=== PATIENT | male | born 1995 | race African-American/Black ===

== ENCOUNTER 2024-08-08 03:43 | Emergency (ER) | payer MEDICAID ==
[~2024-08-08] VITALS: Ht 190.5 cm; Wt 82.0 kg
[2024-08-08 03:46] VITALS: BP 152/89; PULSE 84; RESP 18; TEMP 36.6; O2SAT 99
== END 2024-08-08 05:01 | disposition left against medical advice (07) ==
LOC: ER 03:58
DX: T65.91XA Toxic effect of unspecified substance, accidental (unintentional), initial encounter (principal); Z53.21 Procedure and treatment not carried out due to patient leaving prior to being seen by health care provider; Y92.89 Other specified places as the place of occurrence of the external cause